=== PATIENT | male | born 1960 | race Caucasian/White ===

== ENCOUNTER 2017-07-04 09:47 | Emergency (ER) | payer OTHER ==
[~2017-07-04] VITALS: Ht 180.3 cm; Wt 90.9 kg
[~2017-07-04 09:47] MED LIST: ALBU18HF IH; BEN50 PO; LISI20TA11 PO; OMEP20CA16 PO; PRED20TA PO
[2017-07-04 09:49] VITALS: Ht 180.3 cm; Wt 90.9 kg
[2017-07-04] MEDS ORDERED: ONDANSETRON 4 MG INJ IV STA (10:05)
[2017-07-04] MEDS ORDERED: SOD CHLORIDE 0.9% 1,000 ML IV STA (10:05)
[2017-07-04] MEDS ORDERED: MECLIZINE 12.5 MG TAB PO ONE (10:30)
[2017-07-04 10:31] LABS: BASOPHIL # 0.1 10^3/ul (0.0-0.1); EOSINOPHILS # 0.1 10^3/ul (0.0-0.5); EOSINOPHILS % 0.5 % (0.0-7.0); HEMATOCRIT 48.9 % (42.0-52.0); HEMOGLOBIN 17.2 g/dl (14.0-18.0); LYMPHOCYTES # 2.4 10^3/ul (0.8-2.9); LYMPHOCYTES % 24.6 % (15.0-51.0); MEAN CORPUSCULAR HEMOGLOBIN 30.8 pg (29.0-33.0); MEAN CORPUSCULAR HGB CONC 35.2 g/dl (32.0-37.0); MEAN CORPUSCULAR VOLUME 87.5 fl (82.0-101.0); MEAN PLATELET VOLUME 10.1 fl (7.4-10.4); MONOCYTE # 0.8 10^3/ul (0.3-0.9); NEUTROPHIL # 6.4 10^3/ul (1.6-7.5); NEUTROPHILS % 65.3 % (39.0-77.0); PLATELET COUNT 307 10^3/UL (140-415); RED BLOOD COUNT 5.59 10^6/ul (4.70-6.10); RED CELL DISTRIBUTION WIDTH 12.5 % (11.5-14.5); WHITE BLOOD COUNT 9.9 10^3/ul (4.8-10.8)
[2017-07-04 10:54] LABS: ALANINE AMINOTRANSFERASE 30 IU/L (13-69); ALBUMIN 4.5 g/dl (3.3-4.9); ALBUMIN/GLOBULIN RATIO 1.21; ALKALINE PHOSPHATASE 90 IU/L (42-121); ANION GAP 23 (8-16); ASPARTATE AMINO TRANSFERASE 29 IU/L (15-46); BILIRUBIN,INDIRECT 1.2 mg/dl (0-1.1); BILIRUBIN,TOTAL 1.2 mg/dl (0.2-1.3); BLOOD UREA NITROGEN 18 mg/dl (7-20); CALCIUM 9.8 mg/dl (8.4-10.2); CARBON DIOXIDE 22 mmol/L (21-31); CHLORIDE 101 mmol/L (97-110); CREATININE 0.97 mg/dl (0.61-1.24); GLUCOSE 146 mg/dl (70-220); POTASSIUM 4.1 mmol/L (3.5-5.1); SODIUM 142 mmol/L (135-144); TOTAL PROTEIN 8.2 g/dl (6.1-8.1)
[2017-07-04] MEDS ORDERED: LISI20TA11 PO (11:00)
[2017-07-04] MEDS ORDERED: ESCI20TA PO (11:00)
[2017-07-04] MEDS ORDERED: NAPR-688 PO (11:01)
[2017-07-04] MEDS ORDERED: ASPI81TA3 PO (11:01)
[2017-07-04] MEDS ORDERED: ACET-141 PO (11:02)
[2017-07-04] MEDS ORDERED: MULTI PO (11:03)
[2017-07-04] MEDS ORDERED: OMEP20CA16 PO (11:03)
[2017-07-04 11:11] LABS: TROPONIN-I < 0.012 ng/ml (0.00-0.12)
[2017-07-04] MEDS ORDERED: MECL12.574 PO (12:02)
[2017-07-04] MEDS ORDERED: ONDA4TAB14 PO (12:02)
--- NOTE | 2017-07-04 12:05 | ERD ---
ER Documentation Chief Complaint Date/Time DATE: 07/04/17 TIME: 12:04 Chief Complaint dizziness and N/V x last night HPI Patient is a 57-year-old male with hypertension who presents with "vertigo". The symptoms started yesterday with flu symptoms. He felt like the whole world was spinning. He has a history of similar in the past. He said that last time it was from being dehydrated. He says "Ativan is what they give me" and it makes it better. Upon review of old medical records this is the patient's first visit to the emergency department. He does not know the name of his primary doctor. ROS All systems reviewed and are negative except as per history of present illness. Medications Home Meds Active Scripts Ondansetron (Ondansetron Odt) 4 Mg Tab.rapdis, 4 MG PO Q6H Y for NAUSEA AND/OR VOMITING, #30 TAB Prov:RO CID MD 07/04/17 Meclizine Hcl* (Antivert*) 12.5 Mg Tab, 25 MG PO Q6H Y for DIZZINESS, #20 TAB Prov:RO ICD MD 07/04/17 Reported Medications Multivitamins* (Theragran*) 1 Tab Tab, 1 TAB PO DAILY, TAB 07/04/17 Omeprazole* (Omeprazole*) 20 Mg Capsule.dr, 20 MG PO AC BREAKFAST, #30 CAP 07/04/17 Acetaminophen* (Acetaminophen*) 500 MG Extra Strength Tablet, 500 MG PO DAILY Y for PAIN AND OR ELEVATED TEMP, TAB 07/04/17 Aspirin* (Aspirin* Chew) 81 Mg Tab.chew, 81 MG PO DAILY, TAB.CHEW 07/04/17 Naproxen* (Naproxen*) 500 Mg Tablet, 500 MG PO BID Y for PAIN, TAB 07/04/17 Lisinopril* (Lisinopril*) 20 Mg Tablet, 20 MG PO DAILY, #30 TAB 07/04/17 Escitalopram Oxalate* (Lexapro*) 20 Mg Tablet, 20 MG PO DAILY, #30 TAB 07/04/17 Discontinued Reported Medications Diphenhydramine Hcl* (Benadryl*) 50 Mg Cap, 50 MG PO Y 11/02/12 Albuterol Sulfate* (Ventolin HFA*) 18 Gm Hfa.aer.ad, 18 GM IH Y 11/02/12 Prednisone (Prednisone) 20 Mg Tablet, 20 MG PO Y 11/02/12 Omeprazole* (Omeprazole*) 20 Mg Capsule.dr, 20 MG PO DAILY 11/02/12 Lisinopril* (Lisinopril*) 20 Mg Tablet, 20 MG PO DAILY 11/02/12 Allergies Allergies: Coded Allergies: Penicillins (Verified Allergy, Unknown, 07/04/17) PMhx/Soc History of Surgery: No Anesthesia Reaction: No Hx Neurological Disorder: No Hx Respiratory Disorders: Yes (ASTHMA) Hx Cardiac Disorders: Yes (HTN) Hx Psychiatric Problems: No Hx Miscellaneous Medical Probl: No Hx Alcohol Use: Yes Hx Substance Use: No Hx Tobacco Use: No Smoking Status: Never smoker FmHx Family History: diabetes Physical Exam Vitals Vital Signs Date Time Temp Pulse Resp B/P Pulse Ox O2 Delivery O2 Flow Rate FiO2 07/04/17 12:13 98.2 75 18 120/77 98 Room Air 07/04/17 09:49 98.2 87 20 103/58 98 Physical Exam Const: Moderate distress secondary to dizziness Head: Atraumatic Eyes: Normal Conjunctiva ENT: Normal External Ears, Nose and Mouth. Neck: Full range of motion..~ No meningismus. Resp: Clear to auscultation bilaterally Cardio: Regular rate and rhythm, no murmurs Abd: Soft, non tender, non distended. Normal bowel sounds Skin: No petechiae or rashes Back: No midline or flank tenderness Ext: No cyanosis, or edema Neur: Awake and alert, no slurred speech, strength is 5 out of 5 in all 4 extremities, cranial nerves II through XII are intact Psych: Normal Mood and Affect Result Diagram: 07/04/17 1018 07/04/17 1018 Results 24 hrs Laboratory Tests Test 07/04/17 10:18 White Blood Count 9.910^3/ul Red Blood Count 5.5910^6/ul Hemoglobin 17.2g/dl Hematocrit 48.9% Mean Corpuscular Volume 87.5fl Mean Corpuscular Hemoglobin 30.8pg Mean Corpuscular Hemoglobin Concent 35.2g/dl Red Cell Distribution Width 12.5% Platelet Count 05309^3/UL Mean Platelet Volume 10.1fl Neutrophils % 65.3% Lymphocytes % 24.6% Monocytes % 8.0% Eosinophils % 0.5% Basophils % 1.0% Nucleated Red Blood Cells % 0.0/100WBC Neutrophils # 6.410^3/ul Lymphocytes # 2.410^3/ul Monocytes # 0.810^3/ul Eosinophils # 0.110^3/ul Basophils # 0.110^3/ul Nucleated Red Blood Cells # 0.010^3/ul Sodium Level 142mmol/L Potassium Level 4.1mmol/L Chloride Level 101mmol/L Carbon Dioxide Level 22mmol/L Anion Gap 23 Blood Urea Nitrogen 18mg/dl Creatinine 0.97mg/dl Glucose Level 146mg/dl Calcium Level 9.8mg/dl Total Bilirubin 1.2mg/dl Direct Bilirubin 0.00mg/dl Indirect Bilirubin 1.2mg/dl Aspartate Amino Transf (AST/SGOT) 29IU/L Alanine Aminotransferase (ALT/SGPT) 30IU/L Alkaline Phosphatase 90IU/L Troponin I < 0.012ng/ml Total Protein 8.2g/dl Albumin 4.5g/dl Globulin 3.70g/dl Albumin/Globulin Ratio 1.21 Lipase 43U/L Current Medications Medications (Trade) Dose Ordered Sig/Laurent Route PRN Reason Start Time Stop Time Status Last Admin Dose Admin Sodium Chloride (NS) 1,000 ml @ 1,000 mls/hr Q1H STAT IV 07/04/17 10:05 07/04/17 11:04 DC 07/04/17 10:26 Ondansetron HCl (Zofran Inj) 4 mg ONCE STAT IV 07/04/17 10:05 07/04/17 10:08 DC 07/04/17 10:26 Meclizine HCl (Antivert) 25 mg ONCE ONCE PO 07/04/17 10:30 07/04/17 10:31 DC 07/04/17 10:26 Procedures/MDM EKG read by me: Rate/Rhythm: Regular rate and rhythm at a rate of 66 Intervals: Normal Impression: No evidence of ischemia or arrhythmia Patient is a 57-year-old male with hypertension who presents with vertigo. He feels like the room is spinning. He was given fluids, meclizine, and Zofran. Laboratory studies were basically normal. EKG shows no signs of ischemia. At this point I believe outpatient management is appropriate. I doubt stroke or other serious etiology. The patient went to follow-up closely with his primary doctor within 24-48 hours. He can return for any worsening symptoms. I doubt acute coronary syndrome, stroke, or sepsis. Departure Diagnosis: Primary Impression: Dizziness Condition: Fair Patient Instructions: Dizziness, Unk Cause Referrals: MIKE WHITE (PCP) Additional Instructions: Call your primary care doctor TOMORROW for an appointment during the next 1-2 days.See the doctor sooner or return here if your condition worsens before your appointment time. RO CID MD Jul 04, 2017 12:05
[2017-07-04 12:13] VITALS: BP 120/77; PULSE 75; RESP 18; TEMP 98.2
== END 2017-07-04 12:20 | disposition home or self-care (01) ==
LOC: E/R 09:47
DX: R42 Dizziness and giddiness (principal); R11.2 Nausea with vomiting, unspecified; I10 Essential (primary) hypertension; J45.909 Unspecified asthma, uncomplicated; Z79.82 Long term (current) use of aspirin
CPT/HCPCS: 80053; 83690; 84484; 85025; 93005; J2405; J7030; Z7610; 36415; 96374